=== PATIENT | female | born 1960 | race Caucasian/White ===

== ENCOUNTER 2017-09-26 08:00 | Inpatient (IN) | payer OTHER ==
[2017-09-23 15:42] VITALS: BMI 48.2
[~2017-09-26 08:00] MED LIST: VANCOMYCIN 1,000 MG VIAL (RESTRICTED TO ID ONLY) IVPB ONE; ceFAZolin SODIUM 1 GM VIAL IVPB ONE
[2017-09-26] MEDS ORDERED: THROMBIN (BOVINE) 5,000 UNIT VIAL TP ONE (17:04)
[2017-09-26] MEDS ORDERED: fentaNYL CITRATE 250 MCG/5 ML VIAL ONE ×2 (18:18)
[2017-09-26] MEDS ORDERED: SUCCINYLCHOLINE CHLORIDE 200 MG/10 ML VIAL ONE (18:18)
[2017-09-26] MEDS ORDERED: LIDOCAINE HCL/PF 2% SDV 5ML VIAL ONE (18:18)
[2017-09-26] MEDS ORDERED: PROPOFOL 20 ML ONE ×10 (18:18→21:30)
[2017-09-26] MEDS ORDERED: ceFAZolin SODIUM 1 GM VIAL IVPB ONE ×2 (18:43→22:24)
[2017-09-26] MEDS ORDERED: VANCOMYCIN 1,000 MG VIAL (RESTRICTED TO ID ONLY) IVPB ONE (18:43)
[2017-09-26] MEDS ORDERED: TRANEXAMIC ACID 1000 MG/10 ML VIAL ONE ×2 (18:51→21:56)
[2017-09-26] MEDS ORDERED: ePHEDrine SULFATE 50 MG/1 ML AMPULE ONE (19:05)
[2017-09-26] MEDS ORDERED: BENZOIN/ALOE VERA/STORAX/TOLU 58 ML BOTTLE ONE (21:19)
[2017-09-26] MEDS ORDERED: ceFAZolin SODIUM 1 GM VIAL ONE (22:23)
[2017-09-26] MEDS ORDERED: DEXAMETHASONE SOD PHOSPHATE 4 MG/1 ML VIAL ONE ×2 (22:35→22:36)
[2017-09-26] MEDS ORDERED: NEOSTIGMINE METHYLSULFATE 0.5 MG/ML - 10 ML MDV ONE (22:44)
--- NOTE | 2017-09-26 23:03 | OP ---
Operative Note - Note: Operative Date: 09/26/17 Pre-Operative Diagnosis: 1. Cervical spinal stenosis. 2. Cervical spondylotic myelopathy. 3. Cervical spondylotic radiculopathy. 4. Progressive neurological decline Operation: 1. C5, C6 corpectomies. 2. C4, C7 partial corpectomies. 3. C4-C5, C5-C6, C6-C7 discectomies. 4. C4-C7 anterior cervical decompression & fusion. 5. Bone autograft. 6. Bone allograft Post-Operative Diagnosis: Same as Pre-op Surgeon: Odilon Nye Refrigerated Cargo Clerk: Crescencio Nye Anesthesiologist/CUT PRESSMAN: Long Rodriguez Anesthesia: General Specimens Removed: C4-C5, C5-C6, C6-C7 discs Estimated Blood Loss (mls): 100 Fluid Volume Replaced (mls): 4,000 Operative Report Dictated: Yes
--- NOTE | 2017-09-26 23:09 | PN ---
Progress Note (short form) - Note Progress Note: 57F s/p C4-C5, C5-C6, C6-C7 discectomies; C5, C6 corpectomies; C4, C7 partial corpectomies; C4-C7 anterior cervical decompression and instrumented fusion POD #0. -Admit to ICU x 24 hrs. for airway observation; OK to downgrade to floor 2017 if airway stable. -In case of emergency, remove anterior cervical spine dressing and pull out running suture. -Maintain head of bed >45 degrees. -Pain control. -DVT PPx: -Mechanical only: TAMEKA's, SCD's. -Post-op Ancef x 2 doses, Vancomycin x 1 dose. -f/u AM labs. -Incentive spirometry. -PT/OT/Rehab, OOB. -WBAT B/L UE & LE. -d/c Cook catheter in AM; f/u TOV. -Keep dressing clean & dry. -No heavy lifting, bending or twisting. -Puree diet; advance as tolerated. -B/L UE & LE NV checks. -Care per ICU & primary medical hospitalist teams. -Discharge planning: f/u [facility] office 10/06/2017; call for appointment; . Odilon Nye MD (Orthopaedic Surgery).
[2017-09-26] MEDS ORDERED: traMADol HCL 50 MG TABLET PO PRN (23:13)
[2017-09-26] MEDS ORDERED: oxyCODONE HCL 5 MG TABLET PO PRN ×2 (23:13)
[2017-09-26] MEDS ORDERED: ONDANSETRON 4 MG/2 ML VIAL IVPUSH PRN ×2 (23:13→23:15)
[2017-09-26] MEDS ORDERED: PROMETHAZINE HCL 25 MG/1 ML VIAL IVPUSH PRN (23:15)
[2017-09-26] MEDS ORDERED: LACTATED RINGERS SOLUTION 1,000 ML IV SCH ×2 (23:15)
[2017-09-26] MEDS: ACETAMINOPHEN 1000 MG/100 ML VIAL (NON FORMULARY) IVPB SCH (23:36)
[2017-09-27] MEDS: CEFAZOLIN 3 GM in DEXTROSE 5%-WATER - 100 ML IVPB SCH ×2 (05:11→12:58)
[2017-09-27] MEDS ORDERED: VANCOMYCIN 1,000 MG in DEXTROSE 5%-WATER - 250 ML IVPB ONE (05:30)
[2017-09-27 06:10] LABS: HEMATOCRIT 39.9 % (32.4-45.2); HEMOGLOBIN 13.4 GM/dL (10.7-15.3); MCH 28.9 pg (25.7-33.7); MCHC 33.6 g/dl (32.0-36.0); MEAN CELL VOLUME 85.8 fl (80-96); MEAN PLT VOLUME 8.2 fl (7.5-11.1); PLATELET COUNT 203 K/MM3 (134-434); RBC 4.65 M/mm3 (3.60-5.2); RDW 14.6 % (11.6-15.6); WHITE BLOOD COUNT 9.6 K/mm3 (4.0-10.0)
[2017-09-27] MEDS: ACETAMINOPHEN 1000 MG/100 ML VIAL (NON FORMULARY) IVPB SCH ×2 (06:39→14:15)
[2017-09-27 06:45] LABS: ANION GAP 8 (8-16); BLOOD UREA NITROGEN 14 mg/dL (7-18); CALCIUM 8.6 mg/dL (8.5-10.1); CHLORIDE 110 mmol/L (98-107); CO2 26 mmol/L (21-32); GLUCOSE,RANDOM 190 mg/dL (74-106); POTASSIUM 3.9 mmol/L (3.5-5.1); SODIUM 144 mmol/L (136-145)
[2017-09-27 06:47] LABS: CREATININE 0.8 mg/dL (0.55-1.02)
[2017-09-27] MEDS ORDERED: LEVOTHYROXINE NA 125 MCG TABLET (FP) PO SCH (07:00)
--- NOTE | 2017-09-27 08:13 | PN ---
Physical Exam: SUBJECTIVE: Patient seen and examined at bed side this morning. Complaining of minimal pain at the surgical site. Denies numbness, tingling sensation, no focal neurological deficits, chest pain, sob, cough, palpitation, abdominal pain , nausea or vomiting. Last bowel movement was yesterday. Bladder habit normal. No acute overnight events. OBJECTIVE: Vital Signs Period Temp Pulse Resp BP Sys/Soria Pulse Ox Last 24 Hr 98.5 F-99.5 F 22-94 13-69 120-155/64-100 97-99 GENERAL: Middle aged women lying comfortably in bed, is awake, alert, and fully oriented, in no acute distress. HEAD: Normal with no signs of trauma. EYES: EOM intact, no pallor or icterus. ENT: Ears normal, dry mucous membranes. NECK: Dressing over the surgical site, area looks clean, non erythematous, tender to touch. LUNGS: Breath sounds equal, decreased breath sounds bilaterally, no wheezes, no crackles, no accessory muscle use. HEART: Regular rate and rhythm, S1, S2 without murmur. ABDOMEN: Soft, nontender, nondistended, normoactive bowel sounds, no guarding, no rebound, no hepatosplenomegaly, no masses. EXTREMITIES: 2+ pulses, warm, well-perfused, no edema. NEUROLOGICAL: No facial droop, power 5/5 in all ext. Normal speech, gait not observed. PSYCH: Normal mood, normal affect. SKIN: Warm, dry, normal turgor, no rashes or lesions noted Laboratory Results - last 24 hr 09/26/17 09/26/17 09/27/17 09:20 11:15 05:30 WBC 9.6 RBC 4.65 Hgb 13.4 Hct 39.9 MCV 85.8 MCH 28.9 MCHC 33.6 RDW 14.6 Plt Count 203 MPV 8.2 Sodium Potassium Chloride Carbon Dioxide Anion Gap BUN Creatinine Creat Clearance w eGFR Random Glucose Calcium Blood Type AB POSITIVE AB POSITIVE Antibody Screen Negative 09/27/17 05:30 WBC RBC Hgb Hct MCV MCH MCHC RDW Plt Count MPV Sodium 144 Potassium 3.9 Chloride 110 H Carbon Dioxide 26 Anion Gap 8 BUN 14 Creatinine 0.8 Creat Clearance w eGFR > 60 Random Glucose 190 H Calcium 8.6 Blood Type Antibody Screen Active Medications Generic Name Dose Route Start Last Admin Trade Name Freq PRN Reason Stop Dose Admin Acetaminophen 1,000 mg 09/26/17 23:15 09/27/17 06:39 Ofirmev Injection - IVPB 09/27/17 15:16 1,000 mg Q8H RICKY Administration Dexamethasone Sodium Phosphate 10 mg 09/27/17 09:00 Decadron Injection - IVPUSH 09/27/17 09:01 ONCE ONE Lactated Ringer's 1,000 mls @ 100 mls/hr 09/26/17 23:15 09/27/17 00:10 Lactated Ringers Solution IV 100 mls/hr ASDIR RICKY Administration Cefazolin Sodium 3 gm/ 100 mls @ 100 mls/hr 09/27/17 05:00 09/27/17 05:11 Dextrose IVPB 09/27/17 13:59 100 mls/hr Q8H RICKY Administration Levothyroxine Sodium 125 mcg 09/27/17 07:00 09/27/17 06:39 Synthroid - PO 125 mcg DAILY@0700 RICKY Administration Ondansetron HCl 4 mg 09/26/17 23:13 Zofran Injection IVPUSH Q6H PRN NAUSEA AND/OR VOMITING Oxycodone HCl 5 mg 09/26/17 23:13 09/27/17 04:07 Roxicodone - PO 5 mg Q4H PRN Administration PAIN LEVEL 6-10 Oxycodone HCl 10 mg 09/26/17 23:13 Roxicodone - PO Q4H PRN PAIN LEVEL 7 - 10 Tramadol HCl 50 mg 09/26/17 23:13 Ultram - PO Q6H PRN PAIN LEVEL 4 - 6 Valsartan 80 mg 09/27/17 10:00 Diovan - PO DAILY [facility] ASSESSMENT/PLAN: Patient is a 57 year old female with significant past medical history of Hypertension, Hyperlipidemia, Diabetes Mellitus, Hypothyroidism, chronic back pain came in to the hospital for an Elective surgery. # Cervical spinal stenosis, Cervical spondylotic myelopathy, Cervical spondylotic radiculopathy, Progressive neurological decline s/p C5, C6 corpectomies;C4, C7 partial corpectomies; C4-C5, C5-C6, C6-C7 discectomies; C4-C7 anterior cervical decompression & fusion; Bone autograft; Bone allograft------POD 1 Doing well after surgery. Pain controlled with Oxycodone and Tylenol EBL: 100 ml, Fluid replaced 4L Admitted in ICU No acute overnight events, patient has no neurological symptoms Continue IV Tylenol for pain control Continue Oxycodone 5mg Q4H PRN IV Cefazolin as per Dr. Nye Neuro checks Q4H OOB to chair Cook in place, will d/c once she is out of bed Incentive Spirometer Q1H # Asymptomatic Bradycardia HR in mid 50's. Will do an EKG Transfer to Tele, continuous cardiac monitoring # Hypertension- controlled Continue Valsartan 80mg PO Daily # Hyperlipidemia Continue Atorvastatin 40mg PO Daily # Hypothyroidism Continue Levothyroxine 125 mcg # Diabetes Mellitus Hold Metformin. Continue ISS, monitor FBS Watch for hypoglycemic episodes # Morbid obesity BMI: 48.2 Counseling for weight loss and diet control # FEN IV LR @ 100mls/hr Electrolytes WNL Puree diet # Prophylaxis For DVT: On SCD's For GI: Not indicated # Code Status: Full code # Dispo: Admitted in ICU. Stable to be transferred to Tele. Illness, Investigation and Plan of care explained to the patient. She verbalized understanding. Case discussed with Dr. Castaneda. Visit type - Emergency Visit Emergency Visit: Yes ED Registration Date: 09/26/17 Care time: The patient presented to the Emergency Department on the above date and was hospitalized for further evaluation of their emergent condition. - New Patient This patient is new to me today: Yes Date on this admission: 09/28/17 - Critical Care Critical Care patient: Yes Total Critical Care Time (in minutes): 35 Critical Care Statement: The care of this patient involved high complexity decision making to prevent further life threatening deterioration of the patient 's condition and/or to evaluate & treat vital organ system(s) failure or risk of failure. - Discharge Referral Referred to [facility] Med P.C.: No
--- NOTE | 2017-09-27 08:55 | PN ---
Progress Note (short form) - Note Progress Note: Anesthesia postop note 57 y/o F s/p GA for anterior cervical discectomy and fusion POD#1, vss, aaox3, pain well controlled overnight, no complaints. No anesthesia complications.
[2017-09-27] MEDS ORDERED: DEXAMETHASONE SOD PHOSPHATE 10 MG/1 ML VIAL IVPUSH ONE (09:00)
[2017-09-27] MEDS ORDERED: VALSARTAN 80 MG TABLET (UD) PO SCH (10:00)
[2017-09-27] MEDS: INSULIN SLIDING SCALE (NOVOLOG) 1 VIAL SQ SCH ×3 (10:32→21:42)
[2017-09-27] MEDS ORDERED: PT OWN MED DRAWER 7, Y5N ONE (11:38)
--- NOTE | 2017-09-27 11:50 | PN ---
Teaching Attending Note Name of Resident: Marilyn Taylor ATTENDING PHYSICIAN STATEMENT I saw and evaluated the patient. I reviewed the resident's note and discussed the case with the resident. I agree with the resident's findings and plan as documented. SUBJECTIVE: Patient seen and examined in the ICU. OOB to chair. Pain seems controlled. No CP or SOB. Relative bradycardia noted, hemodynamics stable. OBJECTIVE: Intake & Output 09/24/17 09/25/17 09/26/17 09/27/17 23:59 23:59 23:59 23:59 Intake Total 2150 645 Output Total 425 1050 Balance 1725 -405 Weight 274 lb 6 oz Last Vital Signs Temp Pulse Resp BP Pulse Ox 98.9 F 62 19 126/67 99 09/27/17 10:00 09/27/17 10:00 09/27/17 10:00 09/27/17 10:00 09/27/17 08:00 Active Medications Acetaminophen (Ofirmev Injection -) 1,000 mg IVPB Q8H [facility] Stop: 09/27/17 15:16 Last Admin: 09/27/17 06:39 Dose: 1,000 mg Lactated Ringer's (Lactated Ringers Solution) 1,000 mls @ 100 mls/hr IV ASDIR [facility] Last Admin: 09/27/17 00:10 Dose: 100 mls/hr Cefazolin Sodium 3 gm/ (Dextrose) 100 mls @ 100 mls/hr IVPB Q8H [facility] Stop: 09/27/17 13:59 Last Admin: 09/27/17 05:11 Dose: 100 mls/hr Insulin Aspart (Novolog Vial Sliding Scale -) 1 vial SQ [facility]; Protocol Last Admin: 09/27/17 10:32 Dose: Not Given Levothyroxine Sodium (Synthroid -) 125 mcg PO DAILY@0700 [facility] Last Admin: 09/27/17 06:39 Dose: 125 mcg Ondansetron HCl (Zofran Injection) 4 mg IVPUSH Q6H PRN PRN Reason: NAUSEA AND/OR VOMITING Oxycodone HCl (Roxicodone -) 5 mg PO Q4H PRN PRN Reason: PAIN LEVEL 6-10 Last Admin: 09/27/17 04:07 Dose: 5 mg Oxycodone HCl (Roxicodone -) 10 mg PO Q4H PRN PRN Reason: PAIN LEVEL 7 - 10 Tramadol HCl (Ultram -) 50 mg PO Q6H PRN PRN Reason: PAIN LEVEL 4 - 6 Valsartan (Diovan -) 80 mg PO DAILY RICKY Last Admin: 09/27/17 09:29 Dose: 80 mg GENERAL: awake, alert, and oriented, in no acute distress. HEAD: Normal with no signs of trauma. EYES: EOM intact, no pallor or icterus. ENT: Ears normal, dry mucous membranes. NECK: Dressing over the surgical site, area looks clean, non erythematous, tender to touch. LUNGS: Clear, no wheezes, no crackles, no accessory muscle use. HEART: Regular rate and rhythm, S1, S2 without murmur. ABDOMEN: Soft, nontender, nondistended, normoactive bowel sounds, no guarding, no rebound, no hepatosplenomegaly, no masses. EXTREMITIES: 2+ pulses, warm, well-perfused, no edema. NEUROLOGICAL: No facial droop, non-focal PSYCH: Normal mood, normal affect. SKIN: Warm, dry, normal turgor, no rashes or lesions noted Laboratory Results - last 24 hr 09/26/17 09/26/17 09/27/17 09:20 11:15 05:30 WBC 9.6 RBC 4.65 Hgb 13.4 Hct 39.9 MCV 85.8 MCH 28.9 MCHC 33.6 RDW 14.6 Plt Count 203 MPV 8.2 Sodium Potassium Chloride Carbon Dioxide Anion Gap BUN Creatinine Creat Clearance w eGFR Random Glucose Calcium Blood Type AB POSITIVE AB POSITIVE Antibody Screen Negative 09/27/17 05:30 WBC RBC Hgb Hct MCV MCH MCHC RDW Plt Count MPV Sodium 144 Potassium 3.9 Chloride 110 H Carbon Dioxide 26 Anion Gap 8 BUN 14 Creatinine 0.8 Creat Clearance w eGFR > 60 Random Glucose 190 H Calcium 8.6 Blood Type Antibody Screen ASSESSMENT/PLAN: POD # 1: Cervical spinal stenosis, Cervical spondylotic myelopathy, Cervical spondylotic radiculopathy, Progressive neurological decline s/p C5, C6 corpectomies;C4, C7 partial corpectomies; C4-C5, C5-C6, C6-C7 discectomies; C4-C7 anterior cervical decompression & fusion; Bone autograft; Bone allograft Asymptomatic Bradycardia: (?) due to high vagal tone HTN HPL Hypothyroidism DM Pain control Incentive Spirometry VTE prophylaxis O2 as needed PO as tolerated Glycemic control Floor Dr Isaacs
--- NOTE | 2017-09-27 11:58 | CONSULT ---
Consultation: HISTORY OF PRESENT ILLNESS: Patient is a 57 yo F with a Pmhx of Hypothyroidism, spinal stenosis is s/p C4-C7 cervical decompression and fusion POD #1. She offers no complaints. Maintaining good saturation on room air. Patient with a few runs of bradycardia. Hemodynamics stable. REVIEW OF SYSTEMS: CONSTITUTIONAL: Absent: fever, chills, diaphoresis, generalized weakness, malaise, loss of appetite, weight change HEENT: Absent: rhinorrhea, nasal congestion, throat pain, throat swelling, difficulty swallowing, mouth swelling, ear pain, eye pain, visual changes CARDIOVASCULAR: Absent: chest pain, syncope, palpitations, irregular heart rate, lightheadedness , peripheral edema RESPIRATORY: Absent: cough, shortness of breath, dyspnea with exertion, orthopnea, wheezing, stridor, hemoptysis GASTROINTESTINAL: Absent: abdominal pain, abdominal distension, nausea, vomiting, diarrhea, constipation, melena, hematochezia GENITOURINARY: Absent: dysuria, frequency, urgency, hesitancy, hematuria, flank pain, genital pain MUSCULOSKELETAL: Absent: myalgia, arthralgia, joint swelling, back pain, neck pain ENDOCRINE: Absent: unexplained weight gain, unexplained weight loss, heat intolerance, cold intolerance NEUROLOGIC: Absent: headache, focal weakness or paresthesias, dizziness, unsteady gait, seizure, mental status changes, bladder or bowel incontinence PHYSICAL EXAMINATION Vital Signs - 24 hr 09/26/17 09/26/17 09/26/17 23:13 23:25 23:40 Temperature 99.1 F Pulse Rate 94 H 94 H 87 Respiratory 18 18 16 Rate Blood Pressure 127/67 128/86 141/84 O2 Sat by Pulse 99 99 97 Oximetry (%) 09/26/17 09/27/17 09/27/17 23:55 00:27 00:30 Temperature 98.7 F Pulse Rate 85 22 L 83 Respiratory 14 69 H 20 Rate Blood Pressure 150/84 128/72 128/72 O2 Sat by Pulse 97 Oximetry (%) 09/27/17 09/27/17 09/27/17 02:09 04:00 06:00 Temperature 99.1 F 99.5 F Pulse Rate 61 58 L 53 L Respiratory 13 20 18 Rate Blood Pressure 124/66 128/64 137/71 O2 Sat by Pulse Oximetry (%) 09/27/17 09/27/17 08:00 10:00 Temperature 99.1 F 98.9 F Pulse Rate 59 L 62 Respiratory 18 19 Rate Blood Pressure 155/74 126/67 O2 Sat by Pulse 99 Oximetry (%) GENERAL: appears comfortable, NAD EYES: Pupils equal, round and reactive to light, extraocular movements intact EARS, NOSE, THROAT: oropharynx clear without exudates. Moist mucous membranes. NECK: dressing at surgical site. LUNGS: Breath sounds equal, clear to auscultation bilaterally. No wheezes, and no crackles HEART: Regular rate and rhythm, normal S1 and S2 without murmur, rub or gallop. ABDOMEN: Soft, nontender, not distended, normoactive bowel sounds, no guarding, no rebound, no masses. MUSCULOSKELETAL: Normal range of motion at all joints. No bony deformities or tenderness. No CVA tenderness. UPPER EXTREMITIES: 2+ pulses, No peripheral edema. LOWER EXTREMITIES: 2+ pulses, No peripheral edema. NEUROLOGICAL: Cranial nerves II-XII intact. Normal speech. Laboratory Results - last 24 hr 09/26/17 09/26/17 09/27/17 11:15 15:22 05:30 WBC 9.6 RBC 4.65 Hgb 13.4 Hct 39.9 MCV 85.8 MCH 28.9 MCHC 33.6 RDW 14.6 Plt Count 203 MPV 8.2 Sodium Potassium Chloride Carbon Dioxide Anion Gap BUN Creatinine Creat Clearance w eGFR POC Glucometer 104 Random Glucose Calcium Blood Type AB POSITIVE 09/27/17 05:30 WBC RBC Hgb Hct MCV MCH MCHC RDW Plt Count MPV Sodium 144 Potassium 3.9 Chloride 110 H Carbon Dioxide 26 Anion Gap 8 BUN 14 Creatinine 0.8 Creat Clearance w eGFR > 60 POC Glucometer Random Glucose 190 H Calcium 8.6 Blood Type Active Medications Generic Name Dose Route Start Last Admin Trade Name Freq PRN Reason Stop Dose Admin Acetaminophen 1,000 mg 09/26/17 23:15 09/27/17 06:39 Ofirmev Injection - IVPB 09/27/17 15:16 1,000 mg Q8H RICKY Administration Lactated Ringer's 1,000 mls @ 100 mls/hr 09/26/17 23:15 09/27/17 00:10 Lactated Ringers Solution IV 100 mls/hr ASDIR RICKY Administration Cefazolin Sodium 3 gm/ 100 mls @ 100 mls/hr 09/27/17 05:00 09/27/17 05:11 Dextrose IVPB 09/27/17 13:59 100 mls/hr Q8H RICKY Administration Insulin Aspart 1 vial 09/27/17 11:00 09/27/17 10:32 Novolog Vial Sliding Scale - SQ Not Given ACHS RICKY Protocol Levothyroxine Sodium 125 mcg 09/27/17 07:00 09/27/17 06:39 Synthroid - PO 125 mcg DAILY@0700 RICKY Administration Ondansetron HCl 4 mg 09/26/17 23:13 Zofran Injection IVPUSH Q6H PRN NAUSEA AND/OR VOMITING Oxycodone HCl 5 mg 09/26/17 23:13 09/27/17 04:07 Roxicodone - PO 5 mg Q4H PRN Administration PAIN LEVEL 6-10 Oxycodone HCl 10 mg 09/26/17 23:13 Roxicodone - PO Q4H PRN PAIN LEVEL 7 - 10 Tramadol HCl 50 mg 09/26/17 23:13 Ultram - PO Q6H PRN PAIN LEVEL 4 - 6 Valsartan 80 mg 09/27/17 10:00 09/27/17 09:29 Diovan - PO 80 mg DAILY RICKY Administration ASSESSMENT/PLAN: s/p C4-C7 cervical decompression and fusion -POD #1 -pain control with oxycodone -zofran for nausea -incentive spirometry -PO as tolerated -dvt ppx Hypothyroidism -levothyroxine FEN -LR @ 100 -monitor lytes -puree diet DVT Scds Transfer to [facility] Dispo: We will continue to follow the patient. Thank you for this consultative opportunity. Visit type - Emergency Visit Emergency Visit: Yes ED Registration Date: 09/26/17 Care time: The patient presented to the Emergency Department on the above date and was hospitalized for further evaluation of their emergent condition. - New Patient This patient is new to me today: Yes Date on this admission: 09/27/17 - Critical Care Critical Care patient: Yes Total Critical Care Time (in minutes): 40 Critical Care Statement: The care of this patient involved high complexity decision making to prevent further life threatening deterioration of the patient 's condition and/or to evaluate & treat vital organ system(s) failure or risk of failure.
--- NOTE | 2017-09-27 14:14 | PN ---
Teaching Attending Note Name of Resident: Caty Martinez ATTENDING PHYSICIAN STATEMENT I saw and evaluated the patient. I reviewed the resident's note and discussed the case with the resident. I agree with the resident's findings and plan as documented. SUBJECTIVE: Patient reports some pain at incision site. OBJECTIVE: Vital Signs Period Temp Pulse Resp BP Sys/Soria Pulse Ox Last 24 Hr 98.3 F-99.5 F 22-94 13-69 122-155/64-86 97-99 HEART: S1S2, RRR LUNGS: Clear ABDOMEN: Soft, non-tender, non-distended, normal BS EXTREMITIES: No edema Laboratory Results - last 24 hr 09/26/17 09/27/17 09/27/17 15:22 05:30 05:30 WBC 9.6 RBC 4.65 Hgb 13.4 Hct 39.9 MCV 85.8 MCH 28.9 MCHC 33.6 RDW 14.6 Plt Count 203 MPV 8.2 Sodium 144 Potassium 3.9 Chloride 110 H Carbon Dioxide 26 Anion Gap 8 BUN 14 Creatinine 0.8 Creat Clearance w eGFR > 60 POC Glucometer 104 Random Glucose 190 H Calcium 8.6 Current Medications Generic Name Dose Route Start Last Admin Trade Name Freq PRN Reason Stop Dose Admin Acetaminophen 1,000 mg 09/26/17 23:15 09/27/17 06:39 Ofirmev Injection - IVPB 09/27/17 15:16 1,000 mg Q8H RICKY Administration Lactated Ringer's 1,000 mls @ 100 mls/hr 09/26/17 23:15 09/27/17 00:10 Lactated Ringers Solution IV 100 mls/hr ASDIR RICKY Administration Insulin Aspart 1 vial 09/27/17 11:00 09/27/17 10:32 Novolog Vial Sliding Scale - SQ Not Given ACHS [facility] Protocol Levothyroxine Sodium 125 mcg 09/27/17 07:00 09/27/17 06:39 Synthroid - PO 125 mcg DAILY@0700 RCIKY Administration Ondansetron HCl 4 mg 09/26/17 23:13 Zofran Injection IVPUSH Q6H PRN NAUSEA AND/OR VOMITING Oxycodone HCl 5 mg 09/26/17 23:13 09/27/17 04:07 Roxicodone - PO 5 mg Q4H PRN Administration PAIN LEVEL 6-10 Oxycodone HCl 10 mg 09/26/17 23:13 Roxicodone - PO Q4H PRN PAIN LEVEL 7 - 10 Tramadol HCl 50 mg 09/26/17 23:13 Ultram - PO Q6H PRN PAIN LEVEL 4 - 6 Valsartan 80 mg 09/27/17 10:00 09/27/17 09:29 Diovan - PO 80 mg DAILY RICKY Administration ASSESSMENT AND PLAN: This is a 57 year old woman with a history of HTN, hyperlipidemia, type 2 DM, hypothyroidism, chronic back pain, cervical stenosis who presented for C-spine surgery. 1. Cervical stenosis, spondylotic myelopathy, spondylotic radiculopathy - s/p C5, C6 corpectomies; C4, C7 partial corpectomies; C4-C5, C5-C6, C6-C7 discectomies; C4-C7 anterior cervical decompression and fusion; bone autograft; bone allograft 09/26 - Pain control - Physical therapy 2. Bradycardia, asymptomatic - Continue cardiac monitoring 3. HTN - Continue Diovan 4. Hyperlipidemia 5. Hypothyroidism - Continue Synthroid 6. Type 2 DM - Metformin held - Continue Novolog sliding scale 7. Morbid obesity with BMI 48.6
--- NOTE | 2017-09-27 14:53 | EKG ---
Test Reason : Blood Pressure : / mmHG Vent. Rate : 057 BPM Atrial Rate : 057 BPM P-R Int : 162 ms QRS Dur : 114 ms QT Int : 496 ms P-R-T Axes : 045 -17 000 degrees QTc Int : 482 ms SINUS BRADYCARDIA PROLONGED QT ABNORMAL ECG NO PREVIOUS ECGS AVAILABLE Confirmed by MD Dionne, Tom ([id number]) on 09/27/2017 2:53:07 PM Referred By: BINA MONTANEZ Confirmed By:Tom Truong MD
[2017-09-27] MEDS ORDERED: ONDANSETRON 4 MG/2 ML VIAL IVPUSH PRN (18:09)
[2017-09-27] MEDS ORDERED: oxyCODONE HCL 5 MG TABLET PO PRN ×2 (18:09)
[2017-09-27] MEDS ORDERED: traMADol HCL 50 MG TABLET PO PRN (18:09)
[2017-09-27] MEDS ORDERED: HEMOQUE TEST 1 EACH EACH ONE (21:37)
[2017-09-28 05:50] LABS: HEMATOCRIT 38.1 % (32.4-45.2); HEMOGLOBIN 12.5 GM/dL (10.7-15.3); MCH 28.5 pg (25.7-33.7); MCHC 32.9 g/dl (32.0-36.0); MEAN CELL VOLUME 86.5 fl (80-96); MEAN PLT VOLUME 8.6 fl (7.5-11.1); PLATELET COUNT 234 K/MM3 (134-434); RDW 15.1 % (11.6-15.6); WHITE BLOOD COUNT 13.8 K/mm3 (4.0-10.0)
[2017-09-28 06:17] LABS: ANION GAP 7 (8-16); BLOOD UREA NITROGEN 16 mg/dL (7-18); CALCIUM 8.2 mg/dL (8.5-10.1); CHLORIDE 111 mmol/L (98-107); CO2 29 mmol/L (21-32); GLUCOSE,RANDOM 134 mg/dL (74-106); POTASSIUM 3.9 mmol/L (3.5-5.1); SODIUM 147 mmol/L (136-145)
[2017-09-28 06:19] LABS: CREATININE 0.7 mg/dL (0.55-1.02)
[2017-09-28] MEDS ORDERED: PT OWN MED DRAWER 7, Y5N ONE (06:25)
[2017-09-28] MEDS: INSULIN SLIDING SCALE (NOVOLOG) 1 VIAL SQ SCH ×2 (06:43→10:53)
[2017-09-28] MEDS ORDERED: LEVOTHYROXINE NA 125 MCG TABLET (FP) PO SCH (07:00)
--- NOTE | 2017-09-28 07:40 | PN ---
Physical Exam: SUBJECTIVE: Patient seen and examined OBJECTIVE: Vital Signs Period Temp Pulse Resp BP Sys/Soria Pulse Ox Last 24 Hr 98.2 F-99.1 F 52-73 16-20 104-155/56-74 99-99 GENERAL: The patient is awake, alert, and fully oriented, in no acute distress. HEAD: Normal with no signs of trauma. EYES: PERRL, extraocular movements intact, sclera anicteric, conjunctiva clear. No ptosis. ENT: Ears normal, nares patent, oropharynx clear without exudates, moist mucous membranes. NECK: Trachea midline, full range of motion, supple. LUNGS: Breath sounds equal, clear to auscultation bilaterally, no wheezes, no crackles, no accessory muscle use. HEART: Regular rate and rhythm, S1, S2 without murmur, rub or gallop. ABDOMEN: Soft, nontender, nondistended, normoactive bowel sounds, no guarding, no rebound, no hepatosplenomegaly, no masses. EXTREMITIES: 2+ pulses, warm, well-perfused, no edema. NEUROLOGICAL: Cranial nerves II through XII grossly intact. Normal speech, gait not observed. PSYCH: Normal mood, normal affect. SKIN: Warm, dry, normal turgor, no rashes or lesions noted CBC, BMP 09/28/17 05:30 09/28/17 05:30 Laboratory Results - last 24 hr 09/26/17 09/27/17 09/27/17 15:22 10:31 16:27 WBC RBC Hgb Hct MCV MCH MCHC RDW Plt Count MPV Sodium Potassium Chloride Carbon Dioxide Anion Gap BUN Creatinine Creat Clearance w eGFR POC Glucometer 104 188.33985 189.60871 Random Glucose Calcium 09/27/17 09/28/17 09/28/17 21:39 05:30 05:30 WBC 13.8 H D RBC 4.40 Hgb 12.5 Hct 38.1 MCV 86.5 MCH 28.5 MCHC 32.9 RDW 15.1 Plt Count 234 MPV 8.6 Sodium 147 H Potassium 3.9 Chloride 111 H Carbon Dioxide 29 Anion Gap 7 L BUN 16 Creatinine 0.7 Creat Clearance w eGFR > 60 POC Glucometer [phone] Random Glucose 134 H Calcium 8.2 L 09/28/17 06:32 WBC RBC Hgb Hct MCV MCH MCHC RDW Plt Count MPV Sodium Potassium Chloride Carbon Dioxide Anion Gap BUN Creatinine Creat Clearance w eGFR POC Glucometer [phone] Random Glucose Calcium Current Medications Insulin Aspart (Novolog Vial Sliding Scale -) 1 vial SQ A[facility]; Protocol Last Admin: 09/28/17 06:43 Dose: Not Given Levothyroxine Sodium (Synthroid -) 125 mcg PO DAILY@0700 [facility] Last Admin: 09/28/17 06:34 Dose: 125 mcg Ondansetron HCl (Zofran Injection) 4 mg IVPUSH Q6H PRN PRN Reason: NAUSEA AND/OR VOMITING Oxycodone HCl (Roxicodone -) 5 mg PO Q4H PRN PRN Reason: PAIN LEVEL 6-10 Last Admin: 09/27/17 21:21 Dose: 5 mg Oxycodone HCl (Roxicodone -) 10 mg PO Q4H PRN PRN Reason: PAIN LEVEL 7 - 10 Tramadol HCl (Ultram -) 50 mg PO Q6H PRN PRN Reason: PAIN LEVEL 1-3 Valsartan (Diovan -) 80 mg PO DAILY [facility] Ambulatory Orders Aspirin Coated [Ecotrin -] 81 mg PO DAILY 09/23/17 Atorvastatin Ca [Lipitor] 40 mg PO HS 09/23/17 Levothyroxine [Synthroid -] 125 mcg PO DAILY 09/23/17 Metformin HCl [Metformin HCl ER] 500 mg PO DAILY 09/23/17 Ranitidine [Zantac -] 150 mg PO BID 09/23/17 Tramadol HCl 50 mg PO PRN PRN 09/23/17 Valsartan 80 mg PO DAILY 09/23/17 ASSESSMENT/PLAN:
--- NOTE | 2017-09-28 08:36 | PN ---
Physical Exam: SUBJECTIVE: Patient seen and examined. Offers no complaints. Says pain is controlled. Maintaining sats on NC OBJECTIVE: Vital Signs Period Temp Pulse Resp BP Sys/Soria Pulse Ox Last 24 Hr 98.2 F-99.0 F 52-73 16-20 104-151/56-80 99 GENERAL: appears comfortable, NAD EYES: Pupils equal, round and reactive to light, extraocular movements intact EARS, NOSE, THROAT: oropharynx clear without exudates. Moist mucous membranes. NECK: dressing at surgical site. LUNGS: Breath sounds equal, clear to auscultation bilaterally. No wheezes, and no crackles HEART: Regular rate and rhythm, normal S1 and S2 without murmur, rub or gallop. ABDOMEN: Soft, nontender, not distended, normoactive bowel sounds, no guarding, no rebound, no masses. MUSCULOSKELETAL: Normal range of motion at all joints. No bony deformities or tenderness. No CVA tenderness. UPPER EXTREMITIES: 2+ pulses, No peripheral edema. LOWER EXTREMITIES: 2+ pulses, No peripheral edema. NEUROLOGICAL: Cranial nerves II-XII intact. Normal speech. Laboratory Results - last 24 hr 09/26/17 09/27/17 09/27/17 15:22 10:31 16:27 WBC RBC Hgb Hct MCV MCH MCHC RDW Plt Count MPV Sodium Potassium Chloride Carbon Dioxide Anion Gap BUN Creatinine Creat Clearance w eGFR POC Glucometer [phone] [phone] Random Glucose Calcium 09/27/17 09/28/17 09/28/17 21:39 05:30 05:30 WBC 13.8 H D RBC 4.40 Hgb 12.5 Hct 38.1 MCV 86.5 MCH 28.5 MCHC 32.9 RDW 15.1 Plt Count 234 MPV 8.6 Sodium 147 H Potassium 3.9 Chloride 111 H Carbon Dioxide 29 Anion Gap 7 L BUN 16 Creatinine 0.7 Creat Clearance w eGFR > 60 POC Glucometer 165.45045 Random Glucose 134 H Calcium 8.2 L 09/28/17 06:32 WBC RBC Hgb Hct MCV MCH MCHC RDW Plt Count MPV Sodium Potassium Chloride Carbon Dioxide Anion Gap BUN Creatinine Creat Clearance w eGFR POC Glucometer [phone] Random Glucose Calcium Active Medications Generic Name Dose Route Start Last Admin Trade Name Freq PRN Reason Stop Dose Admin Insulin Aspart 1 vial 09/27/17 22:00 09/28/17 06:43 Novolog Vial Sliding Scale - SQ Not Given ACHS RICKY Protocol Levothyroxine Sodium 125 mcg 09/28/17 07:00 09/28/17 06:34 Synthroid - PO 125 mcg DAILY@0700 RICKY Administration Ondansetron HCl 4 mg 09/27/17 18:09 Zofran Injection IVPUSH Q6H PRN NAUSEA AND/OR VOMITING Oxycodone HCl 5 mg 09/27/17 18:09 09/27/17 21:21 Roxicodone - PO 5 mg Q4H PRN Administration PAIN LEVEL 6-10 Oxycodone HCl 10 mg 09/27/17 18:09 Roxicodone - PO Q4H PRN PAIN LEVEL 7 - 10 Tramadol HCl 50 mg 09/27/17 18:09 Ultram - PO Q6H PRN PAIN LEVEL 1-3 Valsartan 80 mg 09/28/17 10:00 Diovan - PO DAILY [facility] ASSESSMENT/PLAN: s/p C4-C7 cervical decompression and fusion -POD #2 -pain control with oxycodone -zofran for nausea -incentive spirometry -PO as tolerated -dvt ppx Bradycardia -HR in mid 50's -cardiac monitoring Hypothyroidism -levothyroxine FEN -No fluids, patient eating -monitor lytes -puree diet DVT Scds Transfer Tele Visit type - Emergency Visit Emergency Visit: Yes ED Registration Date: 09/26/17 Care time: The patient presented to the Emergency Department on the above date and was hospitalized for further evaluation of their emergent condition. - New Patient This patient is new to me today: No - Critical Care Critical Care patient: Yes Total Critical Care Time (in minutes): 40 Critical Care Statement: The care of this patient involved high complexity decision making to prevent further life threatening deterioration of the patient 's condition and/or to evaluate & treat vital organ system(s) failure or risk of failure.
[2017-09-28] MEDS ORDERED: POLYETHYLENE GLYCOL 3350 119 GM BTL PO ONE (09:25)
[2017-09-28] MEDS ORDERED: SENNOSIDES/DOCUSATE COMBO (SENNA PLUS) TABLET (UD) PO SCH (10:00)
[2017-09-28] MEDS ORDERED: VALSARTAN 80 MG TABLET (UD) PO SCH (10:00)
[2017-09-28] MEDS ORDERED: BENZOCAINE/MENTH/CETYLPYRD CL 1 EACH LOZENGE MM PRN (10:24)
--- NOTE | 2017-09-28 10:24 | CONSULT ---
Admitting History and Physical - Primary Care Physician PCP: Az Coe - Admission History of Present Illness: Patient is a 57 yo F with a Pmhx of Hypothyroidism, spinal stenosis is s/p C4- C7 cervical decompression and fusion Cervical spinal stenosis, Cervical spondylotic myelopathy, Cervical spondylotic radiculopathy, Progressive neurological decline s/p C5, C6 corpectomies;C4, C7 partial corpectomies; C4-C5, C5-C6, C6-C7 discectomies; C4-C7 anterior cervical decompression & fusion; Bone autograft; Bone allograft Asymptomatic Bradycardia: (?) due to high vagal tone HTN HPL Hypothyroidism DM Selected Entries 09/27/17 09/27/17 09/27/17 02:09 06:00 08:00 Breakfast Supper Temperature 99.1 F 99.5 F 99.1 F 09/27/17 09/27/17 09/27/17 09:55 10:00 12:00 Breakfast 75% Supper Temperature 98.9 F 99.0 F 09/27/17 09/27/17 09/27/17 14:00 16:00 18:00 Breakfast Supper Temperature 98.3 F 98.3 F 98.6 F 09/27/17 09/27/17 09/28/17 19:15 22:00 02:00 Breakfast Supper 75% Temperature 98.7 F 98.2 F 09/28/17 09/28/17 09/28/17 06:00 08:00 10:00 Breakfast 100% Supper Temperature 98.4 F 98.3 F 98.7 F 09/28/17 10:18 Breakfast Supper Temperature 98.7 F Laboratory Tests 09/27/17 09/28/17 05:30 05:30 WBC 9.6 13.8 H D Pt reports pain while swallowing and choking on her saliva while sleeping. She c /o "so much pain )she) doesnt want to swallow". She had 1 dose of Decadron yesterday and 1 dose Tylenol yesterday. Scrambled eggs "got stuck" this morning. She denies difficulty with thin liquid/puree and denies congestion. History Source: Patient Limitations to Obtaining History: No Limitations - Advance Directives Advance Directives: Yes: Health Care Proxy - Smoking History Smoking history: Never smoked - Alcohol/Substance Use Hx Alcohol Use: No History - Admission Reason For Visit: CERVICAL DISC DISORDER - General Mental Status: Alert and Oriented, Awake and Alert, Able to Follow Commands Attention: Intact Ability to Follow Directions: Excellent Head/Neck Control: Impaired (limited head rotation. s/p recent C4-C7 cervical decompression and fusion) - Hearing Hearing: Impaired, Both Speech Evaluation - Communication Primary Language: URDU Communication: Yes: Within Normal Limits Oral Expression Ability: Yes: No Impairment - Speech Production Able to Make Needs Known: Yes: WNL Intelligibility: Yes: WNL - Speech Characteristics Voice Loudness: Normal Voice Pitch: Yes: Normal Voice Phonatory-based Quality: Yes: Normal, Dysphonia (mild) Speech Pattern: Normal Speech Clarity: < 100% Nasal Resonance: Normal - Language/Auditory Comprehension Follows: Yes: 2 Stage Simple Commands - Language/Verbal Expression Able to Respond to Simple Queries: Yes: WNL Able to Communicate Wants and Needs: Yes: WNL Functional Communication Status: Yes: WNL - 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 Memory: Yes: WNL Short Term Memory: Yes: WNL - Swallow Evaluation/Bedside Assessment Current Nutritional Intake: Dysphagia Pureed, Thin Liquids Dentition: Yes: Adequate Facial Symmetry at Rest: Symmetrical Facial Symmetry on Retraction: Symmetrical Facial Movement: Controlled Sensation: Normal Against Resistance Opening: Normal Against Resistance Closing: Normal Pucker Lips: Normal Smile: Normal Lingual Movement: Normal, Symmetric Lingual Speed of Movement: Normal Lingual Movement Strgth Against Opposition: Normal Lingual Movement Characteristics: Normal Velopharyngeal Movement: Normal Laryngeal Movement: Able to Palpate, Reduced Excursion Rate of Intake: WFL Bolus Size: WFL Labial Seal: WFL Oral Prep Time: WFL A-P Transit: WFL Pocketing: None Timing of Swallow: Delayed Odynophagia: Pharyngeal Coughing/Throat Clear: No Change in Voice: No Recommendations - Speech Evaluation, Impression/Plan Impression: s/p C4-C7 cervical decompression and fusion. Coughing on Saliva while sleeping but not when awake. c/o Pharyngeal Odynophagia. No overt signs of aspiration.Suspect stasis with solids with reduced laryngeal excursion. Likely edema. - Dysphagia Impressions/Plan Swallowing Skills: Impaired Dysphagia Impressions: Mild Impairment, Moderate Impairment, Ongoing Evaluation *Silent aspiration: cannot be R/O at bedside Dysphagia Treatment Plan: Chin Tuck/Down, 1/2 tsp. at a time, OOB for meals, OOB for 1 h. after meals, Other (Alternate puree with sip of liquid, head flexed. Pain mgmt especuially before meals and bedtime. Sleep on side/head flexed as tolerated. Monitor for congestion/fever,) Recommendations: Modified Barium Swallow (as out pt, especially if difficulty persists) - Recommendations Diet Consistency: Dysphagia Pureed (pt educate on blenderizing food for now mixed wit extra liquid.) Medication Administration: Crushed with applesauce (Pt has difficulty with metformin) Liquids: Thin Liquids Supplement: Glucerna
--- NOTE | 2017-09-28 11:01 | PN ---
Teaching Attending Note Name of Resident: Marilyn Taylor ATTENDING PHYSICIAN STATEMENT I saw and evaluated the patient. I reviewed the resident's note and discussed the case with the resident. I agree with the resident's findings and plan as documented. SUBJECTIVE: Pt seen and examined in the ICU. Pain relatively controlled. Some odynophagia but no dysphagia. +flatus. OBJECTIVE: Vital Signs Period Temp Pulse Resp BP Sys/Soria Pulse Ox Last 24 Hr 98.2 F-99.0 F 52-73 16-20 104-154/56-83 99-99 Intake & Output 09/25/17 09/26/17 09/27/17 09/28/17 23:59 23:59 23:59 23:59 Intake Total 2150 2615 200 Output Total 425 1801 1 Balance 1725 814 199 Weight 124.454 kg 123.491 kg Gen: NAD in chair Heart: RRR Lung: decreased breath sounds at the bases Abd: soft, nontender Ext: no edema CBC, BMP 09/28/17 05:30 09/28/17 05:30 Active Medications Benzocaine/Menthol (Cepacol Lozenge -) 1 each MM PRN PRN PRN Reason: SORE THROAT Insulin Aspart (Novolog Vial Sliding Scale -) [address] [facility]; Protocol Last Admin: 09/28/17 10:53 Dose: Not Given Levothyroxine Sodium (Synthroid -) 125 mcg PO DAILY@0700 [facility] Last Admin: 09/28/17 06:34 Dose: 125 mcg Ondansetron HCl (Zofran Injection) 4 mg IVPUSH Q6H PRN PRN Reason: NAUSEA AND/OR VOMITING Oxycodone HCl (Roxicodone -) 5 mg PO Q4H PRN PRN Reason: PAIN LEVEL 6-10 Last Admin: 09/27/17 21:21 Dose: 5 mg Oxycodone HCl (Roxicodone -) 10 mg PO Q4H PRN PRN Reason: PAIN LEVEL 7 - 10 Senna/Docusate Sodium (Pericolace -) [address] [facility] Last Admin: 09/28/17 09:49 Dose: 1 tablet Tramadol HCl (Ultram -) 50 mg PO Q6H PRN PRN Reason: PAIN LEVEL 1-3 Valsartan (Diovan -) [address] [facility] Last Admin: 09/28/17 09:49 Dose: 80 mg ASSESSMENT AND PLAN: Cervical Spinal Stenosis/Spondylotic Myelopathy/Radiculopathy s/p C5, C6 Corpectomies/C4, C7 Partial Corpectomies/C4-C5, C5-C6, C6-C7 Discectomies/C4-C7 Anterior Cervical Decompression/Fusions HTN Hypothyroidism - pain control - PO as tolerated - incentive spirometry - cepacol lozenges - rehab/PT - DVT prophylaxis - can monitor on floor
[2017-09-28 12:29] VITALS: TEMP 98.6
[2017-09-28 14:13] VITALS: BP 149/91; PULSE 73
--- NOTE | 2017-09-28 16:22 | DS ---
Physical Exam: SUBJECTIVE: Patient seen and examined. C/o of pain in the neck, with pain on swallowing. No fevers, no SOB, ambulating out of bed to chair. Pain controlled on tylenol. Tingling in L UE resolved post surgery. Asymptomatic sinus bradycardia noted on tele. OBJECTIVE: Vital Signs Period Temp Pulse Resp BP Sys/Soria Pulse Ox Last 24 Hr 98.2 F-98.7 F 53-73 16-20 104-154/56-91 99-99 Vital Signs Temp 98.6 F 09/28/17 14:00 Pulse 73 09/28/17 14:00 Resp 17 09/28/17 14:00 BP 149/91 09/28/17 14:00 Pulse Ox 99 09/28/17 08:00 Intake & Output 09/27/17 09/28/17 09/28/17 23:59 11:59 23:59 Intake Total 1970 200 250 Output Total 751 1 4 Balance 1219 199 246 Weight 123.491 kg 123.377 kg Intake: IV 1200 Lactated Ringers Solution 1200 1,000 ml @ 100 mls/hr IV ASDIR [facility] Rx#: [id number] IVPB 200 Oral 570 200 250 Output: Urine 751 1 4 Void 751 1 4 Other: Voiding Method Toilet Toilet Height 1.6 m Body Mass Index (BMI) 48.2 Weight Measurement Method Built in [facility] PHYSICAL EXAM GENERAL: The patient is awake, alert, and fully oriented, in no acute respiratory distress. ENT: moist mucous membranes. NECK: Anterior dressing over neck 3x3cm, dry clean. No obvious drain. full range of motion, supple. LUNGS: Breath sounds equal, clear to auscultation bilaterally, no wheezes, no crackles HEART: Regular rate and rhythm, S1, S2 . ABDOMEN: Soft, nontender, nondistended, normoactive bowel sounds NEUROLOGICAL: AAOx3. Normal tone and strength globally. Normal sensation. Normal speech, normal gait. SKIN: Mild restriction at L shoulder. CBC, BMP 09/28/17 05:30 09/28/17 05:30 LABS Laboratory Results - last 24 hr 09/27/17 09/27/17 09/27/17 10:31 16:27 21:39 WBC RBC Hgb Hct MCV MCH MCHC RDW Plt Count MPV Sodium Potassium Chloride Carbon Dioxide Anion Gap BUN Creatinine Creat Clearance w eGFR POC Glucometer 188.82204 189.48269 165.49123 Random Glucose Calcium 09/28/17 09/28/17 09/28/17 05:30 05:30 06:32 WBC 13.8 H D RBC 4.40 Hgb 12.5 Hct 38.1 MCV 86.5 MCH 28.5 MCHC 32.9 RDW 15.1 Plt Count 234 MPV 8.6 Sodium 147 H Potassium 3.9 Chloride 111 H Carbon Dioxide 29 Anion Gap 7 L BUN 16 Creatinine 0.7 Creat Clearance w eGFR > 60 POC Glucometer 152.96503 Random Glucose 134 H Calcium 8.2 L HOSPITAL COURSE: Date of Admission:09/26/17 Date of Discharge: 09/28/17 Patient is a 57 year old female with significant past medical history of Hypertension, Hyperlipidemia, Diabetes Mellitus, Hypothyroidism, chronic back pain came in to the hospital for an Elective surgery. # Cervical spinal stenosis, Cervical spondylotic myelopathy, Cervical spondylotic radiculopathy, Progressive neurological decline s/p C5, C6 corpectomies;C4, C7 partial corpectomies; C4-C5, C5-C6, C6-C7 discectomies; C4-C7 anterior cervical decompression & fusion; Bone autograft; Bone allograft------POD 2 Pt lost 100 ml, Fluid replaced 4L. Mx on Tylenol and Oxycodone, was on Incentive Spirometer. Received Cefazolin x2 doses. Pt got speech and swallow evaluation, and was recommended for puree with thin liquids. Also encouraged to crush meds and take with apple sauce. Pt is to follow up tomorrow for outpt Modified Barium Enema. Pt was noted to have asymptomatic bradycardia with HR in mid 50's. EKG was not concerning. Pt continued home medications-Valsartan, Atorvastatin, metformin to follow up as an outpt with her PMD. Minutes to complete discharge: 39 Discharge Summary Reason For Visit: CERVICAL DISC DISORDER Current Active Problems Stenosis of cervical spine with myelopathy (Acute) Condition: Improved - Instructions Diet, Activity, Other Instructions: -If any neck swelling, trouble breathing, call 911 right away. -Maintain head of bed >45 degrees. -Pain control with tylenol (pain 1-5), oxycodone (pain 6-10) as needed With opiates, do not drive or operate heavy machinery or take important decisions alone Make sure you are moving your bowels to avoid obstruction to your bowel Take only opiates when severe pain and taper as symptoms improve. Advise to avoid tramadol while taking oxycodone. -Continue Incentive spirometry. -Continue to move around as much as you can tolerate - We are setting you up for visiting nurse services and physical therapy at home _ Continue to bear weight on both upper and lower limbs on both sides as you can tolerate -Keep dressing clean & dry. -No heavy lifting, bending or twisting. -Puree diet; advance as tolerated see below for further instructions. follow up with [facility] [place] office 10/06/2017; call for appointment; . For your throat pain/ swallowing: Chin Tuck/Down, 1/2 tsp. at a time, OOB for meals, OOB for 1 hr. after meals, Other (Alternate puree with sip of liquid, head flexed Tylenol especially before meals and bedtime. Sleep on side/head flexed as tolerated. Monitor for congestion/fever, Type of food: Dysphagia Pureed (pt educate on blenderizing food for now mixed with extra liquid.) Take medications: Crushed with applesauce (Pt has difficulty with metformin) Liquids: Thin Liquids Supplements: Glucerna You are recommended modified barium swallow test before its safe to advance to regular food. Come back in tomorrow 09/29/17 for a modified barium swallow- you are being given a script Call Marcy Sahni immediately to schedule a time for the modified barium swallow tomorrow Follow up with your primary doctor in one week. Continue with your home medications as prescribed, crushing them in apple sauce If you think your symptoms are not getting better, with fever, chills, complete inability to swallow or shortness of breath, pain/redness/discharge around wound area, please go to the nearest emergency room. Referrals: Marcy Sahni MS, CCC [Speech Therapist] - 09/29/17 Odilon Nye MD [Staff Physician] - 10/06/17 ( 10/06/2017; call for appointment; .) Disposition: VNS/HOME HEALTH CARE - Home Medications Comprehensive Discharge Medication List: Ambulatory Orders Aspirin Coated [Ecotrin -] 81 mg PO DAILY 09/23/17 Atorvastatin Ca [Lipitor] 40 mg PO HS 09/23/17 Levothyroxine [Synthroid -] 125 mcg PO DAILY 09/23/17 Metformin HCl [Metformin HCl ER] 500 mg PO DAILY 09/23/17 Ranitidine [Zantac -] 150 mg PO BID 09/23/17 Valsartan 80 mg PO DAILY 09/23/17 Acetaminophen [Pain Relief] 650 mg PO Q6H 15 Days #15 tablet.er 09/28/17 Docusate Sodium [Colace] 100 mg PO DAILY #14 capsule 09/28/17 Miscellaneous Medical Supply [Outpatient Order] 1 each ASDIR #1 misc Polyethylene Glycol 3350 [Miralax (For Daily Use) -] 17 gm PO DAILY #1 bottle Sennosides/Docusate Sodium [Pericolace -] 1 tablet PO BID #28 tablet 09/28/17 oxyCODONE HCL [Roxicodone -] 5 mg PO Q6H PRN #15 tablet MDD 20 09/28/17 This patient is new to me today: Yes Date on this admission: 09/28/17 Emergency Visit: No Critical Care patient: Yes Total Critical Care Time (in minutes): 39 Critical Care Statement: The care of this patient involved high complexity decision making to prevent further life threatening deterioration of the patient 's condition and/or to evaluate & treat vital organ system(s) failure or risk of failure. - Discharge Referral Referred to [facility] No
--- NOTE | 2017-09-28 16:36 | PATH ---
Surgical Pathology Report Patient Name: RONDA FRENCH [facility]. Rec. #: [id number] /Age/Gender: 1960 (Age: 57) / F Account: [id number] Location: ICU [employer] HEL[employer] Taken: 09/26/2017 Received: 09/27/2017 Reported: 09/28/2017 Physicians: Odilon Nye M.D. Specimen(s) Received C4-C5, C5-C6, C6-C7 DISC Clinical History Cervical disc disorder Final Diagnosis C4-C5, C5-C6, C6-C7 DISC, ANTERIOR CERVICAL DECOMPRESSION AND INSTRUMENTATION FUSION: INTERVERTEBRAL DISC TISSUE. Electronically Signed Christine Ventura M.D. Gross Description Received in formalin labeled "C4-C5, C5-C6, C6-C7 disc," is a 4.0 x 3.0 x 0.4 cm aggregate of dash fragments of fibrocartilaginous tissue. A computer help desk representative portion is submitted in one cassette. 09/27/2017 [facility]09/27/2017
--- NOTE | 2017-09-28 18:06 | PN ---
Teaching Attending Note Name of Resident: Perla Philip ATTENDING PHYSICIAN STATEMENT I saw and evaluated the patient. I reviewed the resident's note and discussed the case with the resident. I agree with the resident's findings and plan as documented with exceptions below. SUBJECTIVE: Patient seen and examined. pain well controlled, ambulating, tolerating diet well, reported some concerns with chopped food, no new complaints. OBJECTIVE: Vital Signs Period Temp Pulse Resp BP Sys/Soria Pulse Ox Last 24 Hr 98.2 F-98.7 F 53-73 16-20 104-154/56-91 99-99 Intake & Output 09/25/17 09/26/17 09/27/17 09/28/17 23:59 23:59 23:59 23:59 Intake Total 2150 2615 450 Output Total 425 1801 5 Balance 1725 814 445 Weight 274 lb 6 oz 272 lb general: ambulating in room, no acute distress neck: neck dressing Chest: CTAB, no rales or wheezing Abdomen:soft, obese, NT Home Medications Medication Instructions Recorded Aspirin Coated [Ecotrin -] 81 mg PO DAILY 09/23/17 Atorvastatin Ca [Lipitor] 40 mg PO HS 09/23/17 Levothyroxine [Synthroid -] 125 mcg PO DAILY 09/23/17 Metformin HCl [Metformin HCl ER] 500 mg PO DAILY 09/23/17 Ranitidine [Zantac -] 150 mg PO BID 09/23/17 Valsartan 80 mg PO DAILY 09/23/17 Acetaminophen [Pain Relief] 650 mg PO Q6H 15 Days #15 tablet.er 09/28/17 Docusate Sodium [Colace] 100 mg PO DAILY #14 capsule 09/28/17 Miscellaneous Medical Supply 1 each ASDIR #1 misc 09/28/17 [Outpatient Order] Polyethylene Glycol 3350 [Miralax 17 gm PO DAILY #1 bottle 09/28/17 (For Daily Use) -] Sennosides/Docusate Sodium 1 tablet PO BID #28 tablet 09/28/17 [Pericolace -] oxyCODONE HCL [Roxicodone -] 5 mg PO Q6H PRN #15 tablet MDD 20 09/28/17 Laboratory Results - last 24 hr 09/27/17 09/28/17 09/28/17 21:39 05:30 05:30 WBC 13.8 H D RBC 4.40 Hgb 12.5 Hct 38.1 MCV 86.5 MCH 28.5 MCHC 32.9 RDW 15.1 Plt Count 234 MPV 8.6 Sodium 147 H Potassium 3.9 Chloride 111 H Carbon Dioxide 29 Anion Gap 7 L BUN 16 Creatinine 0.7 Creat Clearance w eGFR > 60 POC Glucometer 165.40164 Random Glucose 134 H Calcium 8.2 L 09/28/17 06:32 WBC RBC Hgb Hct MCV MCH MCHC RDW Plt Count MPV Sodium Potassium Chloride Carbon Dioxide Anion Gap BUN Creatinine Creat Clearance w eGFR POC Glucometer 152.44846 Random Glucose Calcium ASSESSMENT AND PLAN: 57 yof with PMHx of HTN, hyperlipidemia, type 2 DM, hypothyroidism, chronic back pain, cervical stenosis who presented for C-spine surgery. -Cervical stenosis, spondylotic myelopathy, spondylotic radiculopathy s/p C5, C6 corpectomies; C4, C7 partial corpectomies; C4-C5, C5-C6, C6-C7 discectomies; C4-C7 anterior cervical decompression and fusion; bone autograft; bone allograft 09/26 - Physical therapy -Asymptomatic bradycardia -HTN -Hypothyroidism -HLD -NIDDM -Morbid obesity BMI 48.6 Plan: Doing well, discussed with jose Castillo for dc with outpatient follow up. Tylenol/oxycodone prn for pain control. Bowel regimen. Home PT. incentive spirometry. Continue home diovan/synthroid, metformin. HR stable. Speech/swallow consulted, input noted, outpatient MBS script provided. D/c home with services. Plan discussed with patient and all questions answered.
--- NOTE | 2017-09-28 19:01 | OP ---
DATE OF OPERATION: 09/26/2017 PREOPERATIVE DIAGNOSIS: 1. Cervical spinal stenosis. 2. Cervical spondylotic myelopathy. 3. Cervical spondylotic radiculopathy. SURGICAL PROCEDURE: 1. C5, C6 corpectomies. 2. C4, C7 partial corpectomies. 3. C4-C5, C5-C6, C6-C7 anterior cervical discectomy. 4. C4-C7 anterior cervical arthrodesis with instrumentation. 5. Bone autograft. 6. Bone allograft. ESTIMATED BLOOD LOSS: 100 mL. FLUID INTAKE: 4000 mL of Crystalloid. COMPLICATIONS: No complications. DISPOSITION PLANNING: ICU postoperatively for airway observation with plan to discharge home postoperatively. The body and remainder of this dictation will be submitted via [employer] (formerly [employer]). MD MAUREEN Cantu/[id number]
== END 2017-09-28 17:09 | disposition home health service (06) | DRG 321 ==
LOC: JSAMEDAYSX 09:08 → EDSTATUS 09:47 → JICU 09-27 00:31
PROVIDERS: ADMIT Orthopaedic Surgery Adult Reconstructive Orthopaedic Surgery; ATTEND Hospitalist
PROC: 0RG20A0 Fusion of 2 or more Cervical Vertebral Joints with Interbody Fusion Device, Anterior Approach, Anterior Column, Open Approach (ICD-10-PCS; principal; 2017-09-26 11:00)
DX: M48.02 Spinal stenosis, cervical region (principal); M47.12 Other spondylosis with myelopathy, cervical region; M47.22 Other spondylosis with radiculopathy, cervical region; R00.1 Bradycardia, unspecified; I10 Essential (primary) hypertension; E78.5 Hyperlipidemia, unspecified; E03.9 Hypothyroidism, unspecified; R13.10 Dysphagia, unspecified; E11.9 Type 2 diabetes mellitus without complications; E66.01 Morbid (severe) obesity due to excess calories; Z68.42 Body mass index [BMI] 45.0-49.9, adult
CPT/HCPCS: 36415; 76000-TC-FY; 80048; 82962; 85027; 86850; 86900; 86901; 88304-TC; 93005; 93010; 94010; 94760; 97116-GP; 97161-GP; J0131; J1100